=== PATIENT | female | born 1985 | race Caucasian/White ===

== ENCOUNTER → 2016-06-03 | Outpatient (CLI) | payer OTHER ==
[~2016-06-03] MED LIST: 'PARAFON FORTE500 M1 PO; AMOXICILLIN500 M2 PO; ATARAX,VISTARIL50 MG PO; AVPAK AZITHROM250 MG PO; BACTRIM DS 8001 TA1 PO; BACTRIM DS 8001 TAB PO; CARBIDOPA/LEVOD1 TA1 PO; CIPRO500 MG PO; IBUPROFEN600 MG PO; KEFLEX500 M1 PO; MEDI-MECLIZINE25 MG PO; Motrin,Rufen800 MG PO; NAPROSYN500 MG PO; PHENERGAN25 M3 PO; PRILOSEC20 MG PO; PYRIDIUM100 MG PO; SUBOXONE 8 MG-1 EACH SL; VIVITROL380 MG IM; ZOFRAN 4 MG ED2 TAB PO; Zofran4 MG PO
== END | disposition home or self-care (01) ==
LOC: CARD 09:30
DX: R55 Syncope and collapse (principal); R05 Cough; R09.89 Other specified symptoms and signs involving the circulatory and respiratory systems; R00.8 Other abnormalities of heart beat; F17.200 Nicotine dependence, unspecified, uncomplicated

== ENCOUNTER → 2018-09-26 | Outpatient (CLI) | payer OTHER | END | disposition home or self-care (01) | LOC: US 16:00 | DX: Z34.81 Encounter for supervision of other normal pregnancy, first trimester (principal); Z3A.12 12 weeks gestation of pregnancy ==

== ENCOUNTER 2018-12-04 07:47 | Emergency (ER) | payer OTHER ==
[~2018-12-04] VITALS: Wt 62.6 kg
== END 2018-12-04 08:44 | disposition home or self-care (01) ==
LOC: ED 07:47
DX: O9A.212 Injury, poisoning and certain other consequences of external causes complicating pregnancy, second trimester (principal); S51.012A Laceration without foreign body of left elbow, initial encounter; F11.10 Opioid abuse, uncomplicated; O99.332 Smoking (tobacco) complicating pregnancy, second trimester; F17.200 Nicotine dependence, unspecified, uncomplicated; O26.892 Other specified pregnancy related conditions, second trimester; K21.9 Gastro-esophageal reflux disease without esophagitis; Z3A.22 22 weeks gestation of pregnancy; W18.30XA Fall on same level, unspecified, initial encounter; Y93.89 Activity, other specified; Y92.098 Other place in other non-institutional residence as the place of occurrence of the external cause; Y99.9 Unspecified external cause status